=== PATIENT | male | born 1945 | race Hispanic/Latino ===

== ENCOUNTER → 2019-11-09 | Outpatient (CLI) | payer OTHER ==
[~2019-11-09] MED LIST: REGADENOSON 0.4 MG/5 ML PF SYG IVP SCH
== END | disposition home or self-care (01) ==
LOC: SHCH 07:44
PROVIDERS: ATTEND Internal Medicine Cardiovascular Disease
DX: R94.31 Abnormal electrocardiogram [ECG] [EKG] (principal)
CPT/HCPCS: 78452; 93017; 96374; A9500 ×2; J2785

== ENCOUNTER 2021-04-15 06:21 | Day surgery (SDC) | payer OTHER ==
[2021-04-14 13:47] VITALS: BP 135/69
[~2021-04-15] VITALS: Ht 172.7 cm; Wt 103.4 kg
[2021-04-15] VITALS (16 sets, daily range): BP systolic 115–134; BP diastolic 53–72
[~2021-04-15 06:21] MED LIST changes: +ACAR25TA2 PO; +AEC81 PO; +AMLO2.5T4 PO; +CYAN-35 PO; +LISI40TA9 PO; +METF-445 PO; -REGADENOSON 0.4 MG/5 ML PF SYG IVP SCH; +SIMV-46 PO; +TAMS-1 PO
[2021-04-15] MEDS ORDERED: 0.9%NACL 1000ML 1,000 ML IV ONE (07:12)
[2021-04-15] MEDS: CEFAZOLIN SODIUM 1 GM VIAL ONE ×2 (07:31→08:40)
[2021-04-15] MEDS ORDERED: FENTANYL CITRATE PF 50 MCG/1 ML 2ML VIAL ONE (07:37)
[2021-04-15] MEDS ORDERED: LIDOCAINE PF 100MG/5ML (2%) SYRINGE 5ML ONE (07:37)
[2021-04-15] MEDS ORDERED: PROPOFOL 10 MG/ML 20ML VIAL IV ONE (07:37)
[2021-04-15] MEDS ORDERED: EPHEDRINE SULFATE 50 MG/ML AMPULE ONE (08:54)
[2021-04-15] MEDS ORDERED: KETOROLAC 30MG VIAL (30MG/ML) ONE (09:20)
[2021-04-15] MEDS ORDERED: MEPERIDINE-PF 25 MG/ML SYG ONE (09:20)
[2021-04-15] MEDS ORDERED: ACET1TAB25 PO (09:54)
[2021-04-15] MEDS ORDERED: CEPH500B PO (09:54)
== END 2021-04-15 11:10 | disposition home or self-care (01) ==
LOC: DAH 06:21
PROVIDERS: ATTEND Orthopaedic Surgery
DX: S83.281A Other tear of lateral meniscus, current injury, right knee, initial encounter (principal); Z20.822 Contact with and (suspected) exposure to COVID-19; S83.231A Complex tear of medial meniscus, current injury, right knee, initial encounter; M22.41 Chondromalacia patellae, right knee; M67.51 Plica syndrome, right knee; M17.11 Unilateral primary osteoarthritis, right knee; I10 Essential (primary) hypertension; E78.5 Hyperlipidemia, unspecified; E11.9 Type 2 diabetes mellitus without complications; E66.9 Obesity, unspecified; E11.51 Type 2 diabetes mellitus with diabetic peripheral angiopathy without gangrene; Z82.49 Family history of ischemic heart disease and other diseases of the circulatory system; Z79.4 Long term (current) use of insulin; Z79.899 Other long term (current) drug therapy; Z79.82 Long term (current) use of aspirin; Z98.890 Other specified postprocedural states; X50.1XXA Overexertion from prolonged static or awkward postures, initial encounter; Y93.89 Activity, other specified; Y92.89 Other specified places as the place of occurrence of the external cause
CPT/HCPCS: 29880; 82948 ×2; 87426; A4606; A4649 ×2; A4930 ×2; A6223; J0690; J1885; J2001; J2175; J2704; J3010; J3490; J7030; J7120